=== PATIENT | female | born 1950 | race Caucasian/White ===

== ENCOUNTER 2018-09-10 09:58 | Emergency (ER) | payer OTHER ==
[2018-09-10 10:14] VITALS: BMI 26.0
[2018-09-10 10:23] VITALS: TEMP 97.9; O2SAT 96
--- NOTE | 2018-09-10 10:23 | C.PDOC ---
History Of Present Illness VIA TRANS POOR HISTORIAN WORSENING TONGUE PARESTHESIA, PAIN X 4-5 DAYS. INITIALLY STATES INTERMIT PARESTHESIA BOTTOM OF TONGUE "SOMETIMES" THEN STATES "ALL THE TIME". INITIALLY STATING NEW ONSET PAIN BENEATH AND TIP OF TONGUE TODAY, NOW STATES INTERMIT PAIN X 4-5 DAYS BUT WORSE TODAY. NO TRAUMA, SWELLING, LESIONS. EATING WO DIFF. DENIES OTHER ASSOC FOCAL WEAK/NUMB. FAMILY STATES PT SPEAKING WO DIFF THIS WEEK AND CURRENTLY, DENIES SLURRED SPEECH EXAM NAD NONTOXIC HEENT TONGUE NO GROSS, LESIONS, SWELL AROM WO DIFF NO DEFORM NEURO SEE NIH REMAINDER NEG 68 y/o female presents to ED c/o worsening tongue parasthesia pain for the last 4-5 days. Pt reports initially intermittent paresthesia bottom of tongue "sometimes" then states "all the time". Initially stating new onset pain beneath and tip of tongue today, now states intermittent pain 4-5 days but worse today. No trauma, swelling, lesions. Eating without difficulty. Denies other associated focal weakness/numbness. Family states pt speaking without difficulty this week and currently. Denies slurred speech. Time Seen by Provider: 09/10/18 10:20 Chief Complaint (Nursing): Dizziness/Lightheaded History Per: Patient, Shoe Cobbler History/Exam Limitations: no limitations Onset/Duration Of Symptoms: Days, Intermittent Episodes Current Symptoms Are (Timing): Still Present Additional History Per: Patient Past Medical History Reviewed: Historical Data, Nursing Documentation, Vital Signs Family History: States: Unknown Family Hx Review Of Systems Except As Marked, All Systems Reviewed And Found Negative. Constitutional: Negative for: Fever, Chills Cardiovascular: Negative for: Chest Pain, Palpitations Respiratory: Negative for: Cough, Shortness of Breath Gastrointestinal: Negative for: Nausea, Vomiting, Abdominal Pain Neurological: Positive for: Other (tongue paresthesia). Negative for: Weakness, Numbness, Change in Speech, Headache, Dizziness Physical Exam - Physical Exam Appears: Non-toxic, No Acute Distress Skin: Normal Color, Warm, Dry Head: Atraumatic, Normacephalic Eye(s): bilateral: Normal Inspection Nose: Normal Oral Mucosa: Moist Tongue: No Swelling, No Lesions, No Bite, Other (TONGUE NO GROSS, LESIONS, SWELL AROM WO DIFF NO DEFORM) Lips: Normal Appearing Throat: Normal Neck: Normal ROM, Supple Chest: Symmetrical Cardiovascular: Rhythm Regular, No Murmur Respiratory: Normal Breath Sounds, No Rales, No Rhonchi, No Wheezing Gastrointestinal/Abdominal: Soft, No Tenderness Extremity: Normal ROM Neurological/Psych: Oriented x3, Normal Speech ED Course And Treatment - Laboratory Results Result Diagrams: 09/10/18 10:35 09/10/18 10:35 ECG: Interpreted By Ri ECG Rhythm: Sinus Rhythm ECG Interpretation: Normal Rate From EC (bpm) O2 Sat by Pulse Oximetry: 96 (RA) Pulse Ox Interpretation: Normal - Radiology CXR: Interpreted by Ri CXR Interpretation: Yes: No Acute Disease - CT Scan/US Head CT Other Rad Studies (CT/US): Read By Radiologist, Radiology Report Reviewed CT/US Interpretation: Accession No. : [id number]. Patient Name / ID : AGA PATEL / [id number]. Exam Date : 09/10/2018 10:55:02 ( Approved ). Study Comment : Sex / Age : F / 68Y. Creator : Ulysses Owens MD. Dictator : Ulysses Owens MD. Guardian Ad Litem : Real Property Appraiser : Ulysses Owens MD. Approver2 : Report Date : 09/10/2018 11:19:42. My Comment : . Date of service: 09/10/2018. PROCEDURE: CT HEAD WITHOUT CONTRAST. HISTORY: TONGUE PARESTHESIA. COMPARISON: None available. TECHNIQUE: Axial computed tomography images were obtained through the head/brain without intravenous contrast. Radiation dose: Total exam DLP = 1025.46 mGy-cm. This CT exam was performed using one or more of the following dose reduction techniques: Automated exposure control, adjustment of the mA and/or kV according to patient size, and/or use of iterative reconstruction technique. FINDINGS: HEMORRHAGE: No intracranial hemorrhage. BRAIN: No mass effect or edema. Mild diffuse age-appropriate atrophy. Mild periventricular white matter lucency adjacent to the frontal horns of the lateral ventricles consistent with chronic microvascular ischemic change. No evidence of acute infarct. VENTRICLES: Unremarkable. No hydrocephalus. CALVARIUM: Unremarkable. PARANASAL SINUSES: Unremarkable as visualized. No significant inflammatory changes. MASTOID AIR CELLS: Unremarkable as visualized. No inflammatory changes. OTHER FINDINGS: None. IMPRESSION: No intracranial mass, hemorrhage or evidence of acute infarct. Mild age-appropriate involutional changes. NIHSS Stroke Scale - Date/Time Evaluation Performed Date Performed: 09/10/18 Time Performed: 10:23 When Was NIHSS Performed: Baseline - How Severe is the Stroke Level of Consciousness: 0=Alert LOC to Questions: 0=Both comments correct LOC to commands: 0=Obeys both correctly Best Gaze: 0=Normal Visual: 0=No visual loss Facial: 0=Normal Motor Arm - Left: 0=No drift Motor Arm - Right: 0=No drift Motor Leg - Left: 0=No drift Motor Leg - Right: 0=No drift Limb Ataxia: 0=Absent Sensory: 0=Normal Best Language: 0=No aphasia Dysarthia: 0=Normal articulation Extinction & Inattention (Neglect): 0=Normal, no object Score: 0 Progress - Re-Evaluation Re-evaluation Note: 09/10/18 12:31 FEELS BETTER AFTER VISCOUS LIDO. EXAM UNCH. DC ADVISED FU DENTAL, NEURO. - Data Reviewed Data Reviewed: Lab, Diagnostic imaging, Old records rTPA Inclusion/Exclusion - Refusal of Treatment Patient Refused Treatment: No - Inclusion Criteria for Altepase Patient is 18 years or Older: Yes The Clinical Diagnosis of Ischemic Stroke That is Causing a Potentially Disa lorena Neurological Deficit: No Time of Onset is Well Established to be Less Than 270 Minute Before Treatment Would Begin: No Risk/Benefit Discussed With Patient/Family Member Present: No - Exclusion Criteria for Altepase Uncontrolled Hypertension at Time of Treatment (Systolic BP above 185 or Diastolic BP above 110 mmHg): No Active Internal Bleeding: No Known Bleeding Diathesis Including but Not Limited to: Platelets Below 100,000/mm,PTT Above 40 sec After Heparin Use, Current Use of Oral Anitcoagulant With INR Greater Than 1.7 or PT Greater Than 15 secs: No Evidence of an Intracranial Hemorrhage: No Evidence of Major Acute Infarct With Signs Greater Than 1/3 MCA Territory: No Suspicion of Subarachnoid Hemorrhage on Pretreatment Evaluation Even if CT Head Negative For Hemorrhage: No - Warning to TPA With Conditions Following Conditions Weighed Against Anticipated Benefit: No Condition: Stroke Serevity Too Mild, Care Team Unable to Determine Eligibilty Medical Decision Making Medical Decision Making: Plan: * Blood work * CXR * EKG * Head CT Disposition Counseled Patient/Family Regarding: Studies Performed, Diagnosis, Need For Followup, Rx Given - Disposition Referrals: YOUR,PMD [Other] Disposition: HOME/ ROUTINE Disposition Time: 12:33 Condition: IMPROVED Prescriptions: Benzocaine [Anbesol] 12 ml MM Q6 #1 liquid Ibuprofen [Motrin] 400 mg PO QID #30 tab Instructions: Mouth Sores (DC) Forms: D2S (Israeli) - Clinical Impression Clinical Impression: Tongue pain, Oral cavity pain - Scribe Statement The provider has reviewed the documentation as recorded by the Scribe KP All medical record entries made by the Scribe were at my direction and personally dictated by me. I have reviewed the chart and agree that the record accurately reflects my personal performance of the history, physical exam, medical decision making, and the department course for this patient. I have also personally directed, reviewed, and agree with the discharge instructions and disposition.
[2018-09-10 10:43] LABS: BASO # 0.1 K/uL (0.0-0.2); EOS # 0.4 K/uL (0.0-0.7); EOS % 7.4 % (0.0-4.0); HEMOGLOBIN 12.2 g/dL (11.0-16.0); LYMPH % 19.8 % (20.0-40.0); MEAN CELL VOLUME 93.6 fL (81.0-99.0); MEAN CORPUSCULAR HEMOGLOBIN 31.7 pg (27.0-31.0); MEAN CORPUSCULAR HGB CONC 33.8 g/dL (33.0-37.0); MONO # 0.4 K/uL (0.0-0.8); MONO % 7.6 % (0.0-10.0); NEUT # 3.3 K/uL (1.8-7.0); NEUT % 64.2 % (50.0-75.0); NRBC % 0.1 % (0.0-2.0); RBC 3.85 Mil/uL (3.80-5.20); RED CELL DISTRIBUTION WIDTH 12.6 % (11.5-14.5); WHITE BLOOD COUNT 5.1 K/uL (4.8-10.8)
[2018-09-10 10:58] LABS: BLOOD UREA NITROGEN 20 mg/dL (7-17); CALCIUM 9.2 mg/dl (8.6-10.4); GFR NON-AFRICAN AMERICAN > 60
--- NOTE | 2018-09-10 11:23 | CT ---
Date of service: 09/10/2018 PROCEDURE: CT HEAD WITHOUT CONTRAST. HISTORY: TONGUE PARESTHESIA COMPARISON: None available. TECHNIQUE: Axial computed tomography images were obtained through the head/brain without intravenous contrast. Radiation dose: Total exam DLP = 1025.46 mGy-cm. This CT exam was performed using one or more of the following dose reduction techniques: Automated exposure control, adjustment of the mA and/or kV according to patient size, and/or use of iterative reconstruction technique. FINDINGS: HEMORRHAGE: No intracranial hemorrhage. BRAIN: No mass effect or edema. Mild diffuse age-appropriate atrophy. Mild periventricular white matter lucency adjacent to the frontal horns of the lateral ventricles consistent with chronic microvascular ischemic change. No evidence of acute infarct. VENTRICLES: Unremarkable. No hydrocephalus. CALVARIUM: Unremarkable. PARANASAL SINUSES: Unremarkable as visualized. No significant inflammatory changes. MASTOID AIR CELLS: Unremarkable as visualized. No inflammatory changes. OTHER FINDINGS: None. IMPRESSION: No intracranial mass, hemorrhage or evidence of acute infarct. Mild age-appropriate involutional changes.
[2018-09-10 12:05] VITALS: BP 104/61; PULSE 65; RESP 15
--- NOTE | 2018-09-10 12:41 | RAD ---
Date of service: 09/10/2018 PROCEDURE: CHEST RADIOGRAPH, 1 VIEW HISTORY: PARESTHESIA COMPARISON: None available. FINDINGS: LUNGS: Clear. PLEURA: No pneumothorax or pleural fluid seen. CARDIOVASCULAR: No aortic atherosclerotic calcification present. Normal. OSSEOUS STRUCTURES: No significant abnormalities. VISUALIZED UPPER ABDOMEN: Normal. OTHER FINDINGS: None. IMPRESSION: No active disease.
--- NOTE | 2018-09-13 17:57 | CARD ---
APPROVED REPORT Date of service: 09/10/2018 EKG Measurement Heart [id number] <Conclusion> Normal sinus rhythm Left axis deviation Abnormal ECG
== END 2018-09-10 12:42 | disposition home or self-care (01) ==
LOC: C.ER 09:58
DX: K14.6 Glossodynia (principal); K13.79 Other lesions of oral mucosa